=== PATIENT | female | born 1990 | race African-American/Black ===

== ENCOUNTER 2020-06-14 22:19 | Inpatient (IN) | payer OTHER ==
[2020-06-14 22:52] VITALS: BMI 36.6
[2020-06-14] MEDS ORDERED: Lidocaine 1% (PF) 30 ML VIAL SC PRN (23:34)
[2020-06-14] MEDS ORDERED: NS / Oxytocin 40 units/1000ml 1,000 ML IV PRN (23:34)
[2020-06-14] MEDS ORDERED: Lactated Ringer's 1,000 ML IV SCH (23:34)
[2020-06-14] MEDS ORDERED: Promethazine HCl 25 MG/ML VIAL IM PRN (23:34)
[2020-06-14] MEDS ORDERED: hydrALAZINE 20 MG/ML VIAL SLOW IVP PRN (23:34)
[2020-06-14] MEDS ORDERED: Ondansetron PF 4 MG/2 ML Vial IVP PRN (23:34)
[2020-06-14] MEDS ORDERED: NIFEdipine 10 MG CAP PO SCH (23:59)
[2020-06-15 00:01] LABS: Mean Corpuscular HGB CONC 31.8 g/dL (32.0-36.0); Mean Corpuscular Hemoglobin 26.4 pg (27.0-33.0); Mean Corpuscular Volume 83.1 fl (81.6-98.3); Mean Platelet Volume 9.2 fl (7.4-10.4); Platelet Count 296 10x3/uL (150-450); RBC Distribution Width 16.2 % (11.5-14.5); Red Blood Cell (RBC) Count 4.92 10x6/uL (3.90-5.03); White Blood Cell (WBC) Count 9.4 10x3/uL (3.5-10.5)
[2020-06-15] MEDS: Betamet Acet/Betamet Na Ph 30 MG/5 ML VIAL IM SCH (00:05)
[2020-06-15] MEDS: NIFEdipine 10 MG CAP PO SCH ×2 (00:33→01:06)
[2020-06-15 00:34] LABS: Hep B Surf Ag Non-Reactive S/CO (NonReactive); Syphilis Antibody Nonreactive (Nonreactive); Syphilis Antibody Index 0.03 S/CO (<1.00 Non-Reactive)
[2020-06-15] MEDS: Butorphanol Tartrate 1 MG/ML VIAL SLOW IVP PRN ×4 (00:39→14:35)
[2020-06-15] MEDS: Lactated Ringer's 1,000 ML IV SCH ×2 (01:18→14:30)
[2020-06-15 01:31] LABS: HBSAg Index 0.16 S/CO (0-0.99)
[2020-06-15] MEDS: NIFEdipine 10 MG CAP PO PRN ×5 (05:01→18:45)
[2020-06-15] MEDS ORDERED: Acetaminophen 500 MG TAB PO SCH (08:45)
[2020-06-15] MEDS ORDERED: Azithromycin 500 MG in Sodium Chloride 0.9% 250 ML 250 ML IVPB ONE (15:30)
[2020-06-15 15:54] LABS: SARS-CoV-2 PCR by NAA Not Detected (NotDetected)
[2020-06-15] MEDS ORDERED: Morphine 4 MG/ML VIAL SLOW IVP SCH (20:00)
[2020-06-15] MEDS ORDERED: Terbutaline Sulfate 1 MG/ML VIAL SC SCH (20:00)
[2020-06-15] MEDS ORDERED: Ondansetron PF 4 MG/2 ML Vial IVP PRN (20:28)
[2020-06-15] MEDS ORDERED: Meperidine HCl/PF 25 MG/ML VIAL SLOW IVP PRN (20:28)
[2020-06-15] MEDS ORDERED: Naloxone HCl 0.4 mg/ml Vial IVP PRN ×2 (20:28)
[2020-06-15] MEDS ORDERED: L&D-Morphine 4 MG/ML VIAL SLOW IVP PRN (20:28)
[2020-06-15] MEDS ORDERED: Promethazine HCl 25 MG SUPP PR PRN (20:28)
[2020-06-15] MEDS ORDERED: diphenhydrAMINE 50 MG/ML VIAL IVP PRN (20:28)
[2020-06-15] MEDS ORDERED: HYDROmorphone 2 MG/ML VIAL SLOW IVP PRN (20:28)
[2020-06-15] MEDS ORDERED: Naloxone HCl 0.4 mg/ml Vial IV PRN (20:28)
[2020-06-15] MEDS ORDERED: Promethazine HCl 25 MG/ML VIAL IM PRN (20:28)
[2020-06-15] MEDS ORDERED: Ondansetron HCl/PF 4 MG/2 ML Vial IVP PRN (20:28)
[2020-06-15] MEDS ORDERED: Communication Order-Pharmacy FS SCH (20:30)
[2020-06-15] MEDS ORDERED: Triamcinolone 40 MG/ML VIAL IM SCH (21:00)
[2020-06-15] MEDS ORDERED: Triamcinolone 40 MG/ML VIAL ONE (21:12)
[2020-06-15] MEDS ORDERED: Methylergonovine 0.2 MG/ML VIAL ONE (21:46)
[2020-06-15] MEDS ORDERED: Morphine PF 10 MG/10 ML VIAL ONE (22:06)
[2020-06-15] MEDS ORDERED: Fentanyl 100 MCG/2 ML VIAL ONE (22:07)
[2020-06-15] MEDS ORDERED: Ketorolac Tromethamine 30 MG/ML VIAL ONE (22:07)
[2020-06-15] MEDS ORDERED: Ondansetron PF 4 MG/2 ML Vial ONE (22:08)
[2020-06-15] MEDS ORDERED: Dexamethasone 4 mg/ml Vial ONE (22:09)
[2020-06-15] MEDS ORDERED: Phenylephrine 10 MG/ML VIAL ONE (22:09)
[2020-06-15] MEDS ORDERED: Oxytocin 10 UNITS/ML VIAL ONE (22:09)
[2020-06-15] MEDS ORDERED: diphenhydrAMINE 50 MG/ML VIAL ONE (22:09)
[2020-06-15] MEDS: Ketorolac Tromethamine 30 MG/ML VIAL IVP SCH (22:44)
[2020-06-15] MEDS ORDERED: Meperidine HCl/PF 25 MG/ML VIAL ONE (23:04)
[2020-06-15] MEDS ORDERED: NS w/ Oxytocin 30 units 500 ML ONE (23:38)
[2020-06-16] MEDS ORDERED: Ondansetron PF 4 MG/2 ML Vial IVP PRN (01:30)
[2020-06-16] MEDS ORDERED: hydrALAZINE 20 MG/ML VIAL SLOW IVP PRN (01:30)
[2020-06-16] MEDS ORDERED: diphenhydrAMINE 25 MG CAP PO PRN (01:30)
[2020-06-16] MEDS ORDERED: Promethazine HCl 25 MG/ML VIAL IM PRN (01:30)
[2020-06-16] MEDS ORDERED: NS / Oxytocin 40 units/1000ml 1,000 ML IV SCH (01:30)
[2020-06-16] MEDS ORDERED: Lanolin Ointment 7 GM TUBE TOP PRN (01:30)
[2020-06-16] MEDS: Ketorolac Tromethamine 30 MG/ML VIAL IVP SCH ×5 (01:35→18:13)
[2020-06-16] MEDS: Ferrous Sulfate 325 MG TAB PO SCH ×3 (01:36→20:05)
[2020-06-16] MEDS: Betamet Acet/Betamet Na Ph 30 MG/5 ML VIAL IM SCH (01:36)
[2020-06-16] MEDS: Docusate Calcium (SURFAK) 240 MG CAP PO SCH ×3 (01:36→21:50)
[2020-06-16] MEDS: Ibuprofen 800 MG TAB PO SCH ×4 (01:37→21:51)
[2020-06-16] MEDS: Lactated Ringer's 1,000 ML IV SCH ×2 (01:37→01:38)
[2020-06-16 05:45] LABS: Hemoglobin 11.7 g/dL (12.0-15.5); Mean Corpuscular HGB CONC 32.2 g/dL (32.0-36.0); Mean Corpuscular Hemoglobin 27.1 pg (27.0-33.0); Mean Corpuscular Volume 84.2 fl (81.6-98.3); Platelet Count 325 10x3/uL (150-450); RBC Distribution Width 15.9 % (11.5-14.5); Red Blood Cell (RBC) Count 4.31 10x6/uL (3.90-5.03)
[2020-06-16] MEDS ORDERED: Adacel (T-DAP) 0.5 ML SYRINGE IM ONE (09:00)
[2020-06-16] MEDS: Prenatal Vitamin 1 TAB PO SCH (09:09)
[2020-06-16] MEDS: HYDROcodone/Acetaminophen 5/325 mg Tablet PO PRN ×3 (10:40→21:50)
[2020-06-17] MEDS: HYDROcodone/Acetaminophen 5/325 mg Tablet PO PRN ×5 (02:21→23:09)
[2020-06-17] MEDS: Ibuprofen 800 MG TAB PO SCH ×3 (05:15→23:07)
[2020-06-17] MEDS: Ferrous Sulfate 325 MG TAB PO SCH (07:57)
[2020-06-17] MEDS: Docusate Calcium (SURFAK) 240 MG CAP PO SCH ×2 (08:23→23:08)
[2020-06-17] MEDS: Prenatal Vitamin 1 TAB PO SCH (08:23)
[2020-06-17] MEDS: Simethicone Chewable 80 MG TAB PO PRN ×2 (13:20→23:08)
[2020-06-18] MEDS: HYDROcodone/Acetaminophen 5/325 mg Tablet PO PRN ×4 (04:05→20:28)
[2020-06-18] MEDS: Ferrous Sulfate 325 MG TAB PO SCH ×3 (05:28→19:30)
[2020-06-18] MEDS: Ibuprofen 800 MG TAB PO SCH ×3 (06:34→20:28)
[2020-06-18] MEDS: Simethicone Chewable 80 MG TAB PO PRN (06:35)
[2020-06-18] MEDS: Bisacodyl 10 MG SUPP PR PRN ×2 (09:17→20:32)
[2020-06-18] MEDS: Docusate Calcium (SURFAK) 240 MG CAP PO SCH ×2 (09:17→20:29)
[2020-06-18] MEDS: Prenatal Vitamin 1 TAB PO SCH (09:18)
[2020-06-19] MEDS: HYDROcodone/Acetaminophen 5/325 mg Tablet PO PRN ×3 (03:18→14:45)
[2020-06-19] MEDS: Ibuprofen 800 MG TAB PO SCH ×2 (04:42→14:05)
[2020-06-19] MEDS: Simethicone Chewable 80 MG TAB PO PRN (04:42)
[2020-06-19 08:02] VITALS: BP 112/60; TEMP 98.5
[2020-06-19] MEDS: Ferrous Sulfate 325 MG TAB PO SCH (09:27)
[2020-06-19] MEDS: Docusate Calcium (SURFAK) 240 MG CAP PO SCH (09:41)
[2020-06-19] MEDS: Prenatal Vitamin 1 TAB PO SCH (09:42)
== END 2020-06-19 15:15 | disposition home or self-care (01) | DRG 786 ==
LOC: CSHLD/OP 22:19 → CSHLD 23:34 → UNDOADMIN 06-15 06:41 → CSHLD 06-15 06:41 → CSHPP 06-16 00:57
PROVIDERS: ADMIT Family Medicine; ATTEND Family Medicine
PROC: 10D00Z1 Extraction of Products of Conception, Low, Open Approach (ICD-10-PCS; principal; 2020-06-15)
PROC: 4A0HXCZ Measurement of Products of Conception, Cardiac Rate, External Approach (ICD-10-PCS; 2020-06-15)
DX: O34.211 Maternal care for low transverse scar from previous cesarean delivery (principal); O60.14X0 Preterm labor third trimester with preterm delivery third trimester, not applicable or unspecified; O24.429 Gestational diabetes mellitus in childbirth, unspecified control; Z3A.33 33 weeks gestation of pregnancy; Z37.0 Single live birth
CPT/HCPCS: 36415; 51702; 76816; 85027; 86780; 86850; 86900; 86901; 87081; 87340; 87480; 87510; 87635; 87660; 88307; 99285; J0456; J0595; J0690; J0702; J1100; J1200; J1885; J2175; J2210; J2270; J2370; J2405; J3010; J3301; J7050; U0003; U0005

== ENCOUNTER 2021-07-06 21:54 | Emergency (ER) | payer OTHER ==
[2021-07-06] MEDS ORDERED: Ondansetron PF 4 MG/2 ML Vial ONE (22:47)
[2021-07-06 23:06] LABS: #Eosinphils 0.3 10x3/uL (0.0-0.5); #Monocytes 0.4 10x3/uL (0.0-1.1); #Neutrophils 4.6 10x3/uL (1.5-8.4); %Basophils 0.4 % (0.0-2.0); %Eosinophils 3.4 % (0.0-6.0); %Lymphocytes 28.3 % (18.0-47.0); %Monocytes 5.9 % (0.0-10.0); %Neutrophils 61.7 % (40.0-75.0); Hemoglobin 12.1 g/dL (12.0-15.5); Mean Corpuscular HGB CONC 33.2 g/dL (32.0-36.0); Mean Corpuscular Hemoglobin 26.1 pg (27.0-33.0); Mean Corpuscular Volume 78.8 fl (81.6-98.3); Mean Platelet Volume 9.1 fl (7.4-10.4); Platelet Count 389 10x3/uL (150-450); RBC Distribution Width 14.4 % (11.5-14.5); Red Blood Cell (RBC) Count 4.63 10x6/uL (3.90-5.03); White Blood Cell (WBC) Count 7.4 10x3/uL (3.5-10.5)
[2021-07-06 23:17] LABS: ALT (SGPT) 11 U/L (8-55); AST (SGOT) 14 U/L (5-34); Alkaline Phosphatase 100 U/L (40-110); Anion Gap 14 mmol/L (10-20); BUN (Urea Nitrogen) 6 mg/dL (7.0-18.7); Bilirubin, Total 0.3 mg/dL (0.2-1.2); Calc. Creatinine Clearance 0 mL/min (70-130); Calcium 9.6 mg/dL (7.8-10.44); Carbon Dioxide 22 mmol/L (22-29); Chloride 101 mmol/L (98-107); Globulin 3.8 g/dL (2.4-3.5); Glucose 96 mg/dL (70-105); Lipase 5 U/L (8-78); Potassium 3.3 mmol/L (3.5-5.1); Protein, Total 7.8 g/dL (6.0-8.3); Sodium 134 mmol/L (136-145)
[2021-07-06] MEDS ORDERED: Potassium Chloride 20 MEQ TAB ONE (23:42)
== END 2021-07-07 00:20 | disposition home or self-care (01) ==
LOC: CSHERS 21:54
DX: O21.0 Mild hyperemesis gravidarum (principal); O99.281 Endocrine, nutritional and metabolic diseases complicating pregnancy, first trimester; E87.6 Hypokalemia; Z3A.09 9 weeks gestation of pregnancy
CPT/HCPCS: 80053; 83690; 85025; 96374; J2405

== ENCOUNTER 2021-08-19 20:08 | Emergency (ER) | payer OTHER ==
[2021-08-19 21:45] LABS: Bilirubin Neg (Negative); Blood, Urine 50 (Negative); Clarity Clear (Clear); Glucose, Urine (Dipstick) 250 mg/dL (Negative); Ketone, Urine 5 mg/dL (Negative); Leukocyte Negative (Negative); Nitrite Negative (Negative); Protein, Urine (Dipstick) 30 mg/dl (Neg-Trace); Specific Gravity, Urine 1.025 (1.002-1.036)
[2021-08-19] MEDS ORDERED: Acetaminophen 500 MG TAB ONE (21:48)
[2021-08-19 21:52] LABS: #Eosinphils 0.6 10x3/uL (0.0-0.5); #Monocytes 0.5 10x3/uL (0.0-1.1); %Basophils 0.3 % (0.0-2.0); %Eosinophils 4.5 % (0.0-6.0); %Lymphocytes 25.6 % (18.0-47.0); %Monocytes 4.1 % (0.0-10.0); %Neutrophils 65.1 % (40.0-75.0); Hemoglobin 11.7 g/dL (12.0-15.5); Mean Corpuscular HGB CONC 32.7 g/dL (32.0-36.0); Mean Corpuscular Hemoglobin 26.8 pg (27.0-33.0); Mean Corpuscular Volume 82.1 fl (81.6-98.3); Platelet Count 388 10x3/uL (150-450); Red Blood Cell (RBC) Count 4.36 10x6/uL (3.90-5.03); White Blood Cell (WBC) Count 12.3 10x3/uL (3.5-10.5)
[2021-08-19 21:57] LABS: Bacteria/HPF 4+ HPF (None Seen); Calcium Oxalate Crystals 1+ HPF (None Seen); Epithelial Cast 0-3 LPF (None Seen); Mucous/LPF 4+ LPF (<2+); RBC/HPF 0-3 HPF (0-3); WBC/HPF 0-3 HPF (0-3)
[2021-08-19 21:58] LABS: ALT (SGPT) 8 U/L (8-55); AST (SGOT) 9 U/L (5-34); Albumin 3.8 g/dL (3.5-5.0); Alkaline Phosphatase 102 U/L (40-110); Anion Gap 13 mmol/L (10-20); BUN (Urea Nitrogen) 6 mg/dL (7.0-18.7); Bilirubin, Total 0.2 mg/dL (0.2-1.2); Calc. Creatinine Clearance 0 mL/min (70-130); Calcium 9.6 mg/dL (7.8-10.44); Carbon Dioxide 25 mmol/L (22-29); Chloride 102 mmol/L (98-107); Globulin 3.7 g/dL (2.4-3.5); Glucose 90 mg/dL (70-105); Potassium 3.7 mmol/L (3.5-5.1); Protein, Total 7.5 g/dL (6.0-8.3); Sodium 136 mmol/L (136-145)
[2021-08-21 11:40] LABS: Chlam.trachomatis by PCR,Urine Not Detected (NotDetected)
== END 2021-08-19 23:25 | disposition home or self-care (01) ==
LOC: CSHERS 20:08
DX: O99.891 Other specified diseases and conditions complicating pregnancy (principal); R10.30 Lower abdominal pain, unspecified; Z3A.15 15 weeks gestation of pregnancy
CPT/HCPCS: 76856; 80053; 81003; 81015; 84702; 85025; 87086; 87480; 87491; 87510; 87591; 87660; 93976

== ENCOUNTER 2021-11-05 01:51 | Day surgery (SDC) | payer OTHER ==
[2021-11-05] MEDS ORDERED: hydrALAZINE 20 MG/ML VIAL SLOW IVP PRN (02:53)
[2021-11-05 03:13] LABS: Bilirubin Neg (Negative); Blood, Urine Negative (Negative); Clarity Slightly Cloudy (Clear); Glucose, Urine (Dipstick) 50 mg/dL (Negative); Ketone, Urine Negative (Negative); Leukocyte Negative (Negative); Nitrite Negative (Negative); Protein, Urine (Dipstick) Negative (Neg-Trace); Specific Gravity, Urine 1.015 (1.002-1.036); Urobilinogen Normal mg/dL (Less than 2)
[2021-11-05 03:33] LABS: FFN Internal QC Analyzer PASS (PASS); FFN Internal QC Cassette PASS (PASS); Fetal Fibronectin Negative (Negative)
== END 2021-11-05 05:15 | disposition home or self-care (01) ==
LOC: CSHLD/OP 01:51
PROVIDERS: ATTEND Obstetrics & Gynecology
DX: O26.892 Other specified pregnancy related conditions, second trimester (principal); R10.2 Pelvic and perineal pain; R10.9 Unspecified abdominal pain; O99.342 Other mental disorders complicating pregnancy, second trimester; F41.9 Anxiety disorder, unspecified; Z3A.26 26 weeks gestation of pregnancy; Z79.899 Other long term (current) drug therapy; Z98.890 Other specified postprocedural states
CPT/HCPCS: 76815; 81003; 82731; 99283

== ENCOUNTER 2021-12-05 17:03 | Day surgery (SDC) | payer OTHER ==
[2021-12-05 17:59] VITALS: BMI 35.5
[2021-12-05] MEDS ORDERED: hydrALAZINE 20 MG/ML VIAL SLOW IVP PRN (19:12)
[2021-12-05 19:46] LABS: FFN Internal QC Analyzer PASS (PASS); FFN Internal QC Cassette PASS (PASS); Fetal Fibronectin Negative (Negative)
[2021-12-05] MEDS ORDERED: Morphine 10 MG/ML VIAL IM SCH (20:00)
[2021-12-05] MEDS ORDERED: Promethazine HCl 25 MG/ML VIAL IM SCH (20:00)
[2021-12-05 20:45] LABS: Bilirubin Neg (Negative); Blood, Urine Negative (Negative); Clarity Clear (Clear); Glucose, Urine (Dipstick) 50 mg/dL (Negative); Ketone, Urine Negative (Negative); Leukocyte Negative (Negative); Nitrite Negative (Negative); Protein, Urine (Dipstick) 15 mg/dl (Neg-Trace); Specific Gravity, Urine 1.015 (1.002-1.036); Urobilinogen Normal mg/dL (Less than 2)
[2021-12-05 20:58] LABS: Bacteria/HPF Rare-Few HPF (None Seen); Mucous/LPF Rare LPF (<2+); RBC/HPF 0-3 HPF (0-3); Squamous Epithelial 0-3 HPF (0-3); Transitional Epithelial 0-3 HPF (None Seen); WBC/HPF 0-3 HPF (0-3)
== END 2021-12-05 21:50 | disposition home or self-care (01) ==
LOC: CSHLD/OP 17:03
PROVIDERS: ATTEND Obstetrics & Gynecology
DX: O47.03 False labor before 37 completed weeks of gestation, third trimester (principal); O26.893 Other specified pregnancy related conditions, third trimester; R10.2 Pelvic and perineal pain; Z87.51 Personal history of pre-term labor; Z3A.31 31 weeks gestation of pregnancy
CPT/HCPCS: 81001; 82731; 87480; 87510; 87660; 96372; 99285; J2270; J2550

== ENCOUNTER 2021-12-26 18:22 | Day surgery (SDC) | payer OTHER ==
[2021-12-26 19:34] VITALS: BMI 35.9
[2021-12-26] MEDS ORDERED: hydrALAZINE 20 MG/ML VIAL SLOW IVP PRN (19:43)
[2021-12-26] MEDS ORDERED: Lactated Ringer's 1,000 ML IV SCH ×2 (19:45)
[2021-12-26] MEDS: Metoclopramide HCl 10 MG/2 ML VIAL IVP SCH ×3 (19:59→21:07)
[2021-12-26] MEDS: diphenhydrAMINE 50 MG/ML VIAL IVP SCH ×2 (19:59→21:07)
[2021-12-26] MEDS ORDERED: Acetaminophen/Codeine 30-300mg Tablet PO SCH (20:00)
[2021-12-26 20:53] LABS: Bilirubin Neg (Negative); Blood, Urine 10 (Negative); Clarity Clear (Clear); Glucose, Urine (Dipstick) 250 mg/dL (Negative); Ketone, Urine 15 mg/dL (Negative); Leukocyte 25 (Negative); Nitrite Negative (Negative); Protein, Urine (Dipstick) 30 mg/dl (Neg-Trace); Specific Gravity, Urine 1.015 (1.005-1.030)
[2021-12-26 21:08] LABS: RBC/HPF 0-3 HPF (0-3); Squamous Epithelial 0-3 HPF (0-3); WBC/HPF 0-3 HPF (0-3)
[2021-12-26 21:09] LABS: Bacteria/HPF 3+ HPF (None Seen); Mucous/LPF 3+ LPF (<2+)
[2021-12-26] MEDS ORDERED: Cephalexin 500 MG CAP PO SCH (21:30)
== END 2021-12-26 21:58 | disposition home or self-care (01) ==
LOC: CSHLD/OP 18:22
PROVIDERS: ATTEND Obstetrics & Gynecology
DX: O60.03 Preterm labor without delivery, third trimester (principal); Z3A.34 34 weeks gestation of pregnancy; O26.893 Other specified pregnancy related conditions, third trimester; R51.9 Headache, unspecified; M79.10 Myalgia, unspecified site; Z79.899 Other long term (current) drug therapy; Z98.890 Other specified postprocedural states
CPT/HCPCS: 76815; 81001; 87086; 87480; 87510; 87660; 96360; 96361; 96375; 99285; J1200; J2765

== ENCOUNTER 2022-01-06 00:03 | Inpatient (IN) | payer OTHER ==
[2022-01-06 00:18] VITALS: BMI 34.8
[2022-01-06] MEDS ORDERED: Morphine 10 MG/ML VIAL SLOW IVP PRN (00:30)
[2022-01-06] MEDS ORDERED: Promethazine HCl 25 MG/ML VIAL IM PRN ×3 (00:31→10:57)
[2022-01-06] MEDS ORDERED: Ondansetron PF 4 MG/2 ML Vial IVP PRN ×2 (00:38→10:57)
[2022-01-06] MEDS ORDERED: hydrALAZINE 20 MG/ML VIAL SLOW IVP PRN ×2 (00:38→10:41)
[2022-01-06 00:54] LABS: Hemoglobin 11.2 g/dL (12.0-15.5); Mean Corpuscular Hemoglobin 24.8 pg (27.0-33.0); Mean Corpuscular Volume 77.6 fl (81.6-98.3); Mean Platelet Volume 9.8 fl (7.4-10.4); Platelet Count 345 10x3/uL (150-450); RBC Distribution Width 15.2 % (11.5-14.5); Red Blood Cell (RBC) Count 4.51 10x6/uL (3.90-5.03)
[2022-01-06] MEDS ORDERED: Lactated Ringer's 1,000 ML IV SCH (01:00)
[2022-01-06 01:26] LABS: HBSAg Index 0.18 S/CO (0-0.99); Hep B Surf Ag Non-Reactive S/CO (NonReactive); Syphilis Antibody Nonreactive (Nonreactive); Syphilis Antibody Index 0.03 S/CO (<1.00 Non-Reactive)
[2022-01-06 01:46] LABS: D-Dimer Test 1.23 mg/L FEU (0.19-0.50); INR-International Normal Ratio 1.1; PTT 30.5 sec (22.0-33.0); Prothrombin Time 11.7 sec (9.5-12.1)
[2022-01-06 03:03] LABS: Amphetamine Not Detected (NotDetected); Barbiturates Screen Not Detected (NotDetected); Benzodiazepine Screen Not Detected (NotDetected); Cocaine Metabolite Screen Not Detected (NotDetected); Methadone Not Detected (NotDetected); Methamphetamine Not Detected (NotDetected); Opiate Screen Detected (NotDetected); Oxycodone Screen Not Detected (NotDetected); Phencyclidine (PCP) Not Detected (NotDetected); THC/Cannabinoid Screen Not Detected (NotDetected); Tricyclic Screen Not Detected (NotDetected)
[2022-01-06 03:04] LABS: Hemoglobin 10.6 g/dL (12.0-15.5); Mean Corpuscular HGB CONC 31.9 g/dL (32.0-36.0); Mean Corpuscular Hemoglobin 24.6 pg (27.0-33.0); Mean Platelet Volume 9.4 fl (7.4-10.4); Platelet Count 304 10x3/uL (150-450); RBC Distribution Width 15.2 % (11.5-14.5); Red Blood Cell (RBC) Count 4.31 10x6/uL (3.90-5.03); White Blood Cell (WBC) Count 11.4 10x3/uL (3.5-10.5)
[2022-01-06] MEDS: Morphine 2 MG/ML VIAL SLOW IVP SCH ×2 (04:21→14:00)
[2022-01-06 05:50] LABS: Hemoglobin 10.4 g/dL (12.0-15.5); Mean Corpuscular HGB CONC 32.2 g/dL (32.0-36.0); Mean Corpuscular Hemoglobin 24.8 pg (27.0-33.0); Mean Corpuscular Volume 77.1 fl (81.6-98.3); Mean Platelet Volume 9.6 fl (7.4-10.4); Platelet Count 311 10x3/uL (150-450); RBC Distribution Width 15.3 % (11.5-14.5); Red Blood Cell (RBC) Count 4.19 10x6/uL (3.90-5.03); White Blood Cell (WBC) Count 13.1 10x3/uL (3.5-10.5)
[2022-01-06] MEDS ORDERED: Famotidine/PF 20 mg/2ml Vial SLOW IVP PRN (06:43)
[2022-01-06] MEDS ORDERED: Bicitra 30 ML UDCUP PO PRN (06:43)
[2022-01-06] MEDS ORDERED: CEFAZOLIN 2 GM in Sodium Chloride 0.9% 100 ML IVPB SCH (06:45)
[2022-01-06 08:34] LABS: SARS-CoV-2 NAA Rapid Test Not Detected (NotDetected)
[2022-01-06] MEDS ORDERED: Phenylephrine 40 MG/NS 250 ML 250 ML ONE (09:31)
[2022-01-06] MEDS ORDERED: PHENYLEPHRINE-NS 100 MCG/ML 10 ML SYRINGE ONE (09:31)
[2022-01-06] MEDS ORDERED: Ondansetron PF 4 MG/2 ML Vial ONE (09:31)
[2022-01-06] MEDS ORDERED: Ketorolac Tromethamine 30 MG/ML VIAL ONE (09:31)
[2022-01-06] MEDS ORDERED: Morphine PF 10 MG/10 ML VIAL ONE (09:31)
[2022-01-06] MEDS ORDERED: Oxytocin 10 UNITS/ML VIAL ONE (09:31)
[2022-01-06] MEDS ORDERED: ePHEDrine Sulfate 50 MG/10 ML VIAL ONE (10:01)
[2022-01-06] MEDS ORDERED: Midazolam HCl 2 mg/2 ml Vial ONE (10:12)
[2022-01-06] MEDS ORDERED: Acetaminophen 325 MG TAB PO PRN (10:41)
[2022-01-06] MEDS ORDERED: Bisacodyl 10 MG SUPP PR PRN (10:41)
[2022-01-06] MEDS ORDERED: HYDROcodone/Acetaminophen 5/325 mg Tablet PO PRN ×2 (10:41)
[2022-01-06] MEDS ORDERED: Meperidine HCl/PF 25 MG/ML VIAL SLOW IVP PRN (10:57)
[2022-01-06] MEDS ORDERED: Ondansetron HCl/PF 4 MG/2 ML Vial IVP PRN (10:57)
[2022-01-06] MEDS ORDERED: Naloxone HCl 0.4 mg/ml Vial IVP PRN ×2 (10:57)
[2022-01-06] MEDS ORDERED: Promethazine HCl 25 MG SUPP PR PRN (10:57)
[2022-01-06] MEDS ORDERED: Moisturizing Cream (Eucerin) 113 GM JAR TOP PRN (10:57)
[2022-01-06] MEDS ORDERED: Naloxone HCl 0.4 mg/ml Vial IV PRN (10:57)
[2022-01-06] MEDS ORDERED: diphenhydrAMINE 50 MG/ML VIAL IVP PRN (10:57)
[2022-01-06] MEDS ORDERED: Fentanyl 100 MCG/2 ML VIAL SLOW IVP PRN (10:57)
[2022-01-06] MEDS ORDERED: Communication Order-Pharmacy FS SCH (11:00)
[2022-01-06] MEDS ORDERED: Ketorolac Tromethamine 30 MG/ML VIAL IVP SCH (11:00)
[2022-01-06 11:15] LABS: pH (Cord, venous) 7.204 (7.250-7.350)
[2022-01-06] MEDS ORDERED: NS w/ Oxytocin 30 units 500 ML ONE (12:46)
[2022-01-06 13:01] LABS: Hemoglobin 10.3 g/dL (12.0-15.5); Mean Corpuscular HGB CONC 31.6 g/dL (32.0-36.0); Mean Corpuscular Hemoglobin 24.5 pg (27.0-33.0); Mean Corpuscular Volume 77.6 fl (81.6-98.3); Platelet Count 309 10x3/uL (150-450); RBC Distribution Width 15.4 % (11.5-14.5); White Blood Cell (WBC) Count 13.5 10x3/uL (3.5-10.5)
[2022-01-06] MEDS: Lactated Ringer's 1,000 ML IV SCH ×3 (14:02→20:50)
[2022-01-06] MEDS: Ibuprofen 800 MG TAB PO SCH ×2 (14:02→20:49)
[2022-01-06] MEDS: Ferrous Sulfate 325 MG TAB PO SCH (20:49)
[2022-01-06] MEDS: Ketorolac Tromethamine 30 MG/ML VIAL IVP PRN (20:50)
[2022-01-06] MEDS: Docusate 100 MG CAP PO SCH (20:50)
[2022-01-07] MEDS: HYDROcodone/Acetaminophen 5/325 mg Tablet PO PRN ×5 (01:40→21:25)
[2022-01-07] MEDS: Ketorolac Tromethamine 30 MG/ML VIAL IVP PRN ×2 (03:10→09:26)
[2022-01-07 05:34] LABS: Hemoglobin 8.1 g/dL (12.0-15.5); Mean Corpuscular HGB CONC 31.6 g/dL (32.0-36.0); Mean Corpuscular Hemoglobin 24.5 pg (27.0-33.0); Mean Corpuscular Volume 77.3 fl (81.6-98.3); Mean Platelet Volume 10.1 fl (7.4-10.4); Platelet Count 290 10x3/uL (150-450); RBC Distribution Width 15.2 % (11.5-14.5); Red Blood Cell (RBC) Count 3.31 10x6/uL (3.90-5.03); White Blood Cell (WBC) Count 11.4 10x3/uL (3.5-10.5)
[2022-01-07] MEDS: Ibuprofen 800 MG TAB PO SCH ×3 (06:21→21:25)
[2022-01-07] MEDS: Docusate 100 MG CAP PO SCH ×2 (09:26→21:25)
[2022-01-07] MEDS: Prenatal Vitamin 1 TAB PO SCH (09:26)
[2022-01-07] MEDS: Simethicone Chewable 80 MG TAB PO PRN ×3 (09:26→21:24)
[2022-01-07] MEDS: Ferrous Sulfate 325 MG TAB PO SCH ×2 (09:31→21:25)
[2022-01-07] MEDS ORDERED: Boostrix 0.5 ML (Tdap) VIAL (>/=7 yrs of age) IM ONE (10:41)
[2022-01-07] MEDS: Lactated Ringer's 1,000 ML IV SCH ×2 (11:21→19:25)
[2022-01-08] MEDS: Lactated Ringer's 1,000 ML IV SCH ×2 (01:43→07:26)
[2022-01-08] MEDS: HYDROcodone/Acetaminophen 5/325 mg Tablet PO PRN (04:31)
[2022-01-08] MEDS: Simethicone Chewable 80 MG TAB PO PRN (04:31)
[2022-01-08] MEDS: Ibuprofen 800 MG TAB PO SCH (06:03)
[2022-01-08 07:49] VITALS: BP 120/71; TEMP 98.7
[2022-01-08] MEDS: Ferrous Sulfate 325 MG TAB PO SCH (07:57)
[2022-01-08] MEDS: Docusate 100 MG CAP PO SCH (07:57)
[2022-01-08] MEDS: Prenatal Vitamin 1 TAB PO SCH (07:58)
== END 2022-01-08 13:35 | disposition home or self-care (01) | DRG 786 ==
LOC: CSHLD/OP 00:03 → INTOOBSV 01:08 → CSHLD 01:08 → OBSVTOIN 07:00 → CSHPP 13:17
PROVIDERS: ADMIT Obstetrics & Gynecology; ATTEND Obstetrics & Gynecology
PROC: 10D00Z1 Extraction of Products of Conception, Low, Open Approach (ICD-10-PCS; principal; 2022-01-06)
DX: O60.14X0 Preterm labor third trimester with preterm delivery third trimester, not applicable or unspecified (principal); K66.1 Hemoperitoneum; Z3A.35 35 weeks gestation of pregnancy; Z37.0 Single live birth; O34.211 Maternal care for low transverse scar from previous cesarean delivery; Z20.822 Contact with and (suspected) exposure to COVID-19; F41.9 Anxiety disorder, unspecified; O99.344 Other mental disorders complicating childbirth; Z79.899 Other long term (current) drug therapy; N73.6 Female pelvic peritoneal adhesions (postinfective); O90.0 Disruption of cesarean delivery wound; Z91.018 Allergy to other foods; Z91.013 Allergy to seafood; O76 Abnormality in fetal heart rate and rhythm complicating labor and delivery; O99.62 Diseases of the digestive system complicating childbirth; L91.0 Hypertrophic scar; O99.72 Diseases of the skin and subcutaneous tissue complicating childbirth
CPT/HCPCS: 36415; 51702; 76815; 80306; 82805; 85027; 85049; 85300; 85362; 85379; 85384; 85460; 85610; 85730; 86780; 86850; 86900; 86901; 87340; 99285; G0378; J0690; J1885; J2250; J2270; J2274; J2405; J2550; J2590; J3490; J7120; S0028; U0002